=== PATIENT | male | born 1975 | race Caucasian/White ===

== ENCOUNTER 2019-01-10 21:30 | Emergency (ER) | payer OTHER, SELFPAY ==
[2019-01-10 21:33] VITALS: BP 192/94; PULSE 87; RESP 16; TEMP 36.8; O2SAT 96
[2019-01-10] MEDS: Cephalexin 500 MG CAP PO ×2 (22:44→22:55)
[2019-01-10 22:49] VITALS: BP 174/99; PULSE 71; RESP 16; O2SAT 97
--- NOTE | 2019-01-10 22:52 | W.ED.GENAD ---
Discharge Plan Disposition Patient Disposition: HOME Condition: Good Discharge Details Chief Complaint: Laceration Clinical Impression: Complicated laceration of lip Primary Care Provider: Leydi,Local ED Provider: Carolina Cisse Home Meds and New Rx's Prescriptions: New cephalexin [Keflex] 500 mg capsule 500 mg PO QID Qty: 18 RF: 0 Discharge Instructions Instructions: Cephalexin (By mouth), Facial Laceration (ED) Additional Instructions: Encourage hydration. Tylenol and/or ibuprofen as needed for discomfort. Please take Keflex as prescribed. After eating, pleaserinse your mouth with salt water to try to keep inner laceration clean. Monitor wound for signs of infection including redness, warmth, drainage, increased pain, fever/chills. If you develop these or other new/worsening symptoms please seek care urgently once again. External sutures need to be removed in 5 to 7 days, return here to have this done or follow-up with primary care Medical Decision Making Patient is a 43 year old male presenting today after being struck in [facility] face with a hockey puck. Suffered irregular laceration to the left lower lip, does not extend into the meme border. Last tetanus 2 months. Patient feels inner involvement as well. Denies other injury at the time of the incident. No LOC. On exam, he resting comfortably, appears to be in no distress. He has a 1.5 cm angled laceration which goes through to the inner lip. Hole is noted at skylar base of the lip. Patient and I discussed treatment options. We discussed risks/benefits of suture closure as well as expected procedural steps. He voices understanding and wishes to proceed. Please see procedure note. Wound was copiously irrigated with sterile saline and explore through and through with no FB or debris noted. Exterior laceration was closed initially with good approximation of the wound edges. Inner woundw as loosely approximated to help prevent food particle debris but allow for any drainage that may occur. We discussed wound care in depth. Plan to begin on Keflex. He was given strict return precautions. He is unclear where he will be at the time external sutures need to be removed, he will have them removed in the next 5-7 days. All of his questions and concerns were addressed, he is in agreemtn with this plan. Patient noted to be hypertensive. Continues to be hypertensive at 174/99 at the time of discharge. Patient reports he has white coat syndrome and that hits is typical. Monitors BP at home and is not typically elevated. Primary aware. HPI General Mode of arrival: ambulatory. Date/Time Provider Initiated Documentation: 01/10/19 21:33. Limitations to Documentation: no limitations. Information obtained by: patient and RN notes reviewed. History of Present Illness 43 year old M presents to the emergency department with the chief complaint of lip laceration, described as mild, Quality is described as aching, and is localized to the mouth. Patient reports no radiation. Patient started experiencing this minute(s) and it has been constant. No relieving factors improve symptom(s), No exacerbating factors reported . Patient notes no other symptoms.. Patient did receive the following treatments prior to arrival, none Related Data Home Medications Medication Instructions Recorded Confirmed cephalexin [Keflex] 500 mg PO QID #18 cap 01/10/19 Previous Rx's Medication Instructions Recorded cephalexin [Keflex] 500 mg PO QID #18 cap 01/10/19 Allergies Allergy/AdvReac Type Severity Reaction Status Date / Time No Known Allergies Allergy Unverified 11/30/16 11:05 General Stated Complaint: Laceration DALTON: 4 Review of Systems Constitutional Constitutional: Reports as per HPI, Denies chills, Denies fever(s) and Denies headache(s) ENT Ears, Nose, Mouth, and Throat: Denies change in voice, Denies dental pain, Reports facial pain, Denies headache(s), Reports lip swelling, Denies epistaxis, Reports mouth pain, Denies neck pain, Denies nose pain and Denies tongue swelling Musculoskeletal Musculoskeletal: Reports as per HPI and Denies neck pain Integumentary/Breasts Skin/Breast: Reports as per HPI Neurologic Neurologic: Reports as per HPI, Denies headache(s), Denies sensory deficit and Denies paresthesias Allergic/Immunologic Allergic/Immunologic: Reports lip swelling and Denies tongue swelling [facility] Surgical History Repair of inguinal hernia February, Social History Smoking/Tobacco Use Status: Never Alcohol Intake: current Alcohol Intake frequency: a few times a week Drug use: Never Substance use type: does not use and crack/cocaine Do you feel safe at home: Yes Do you feel safe in your relationship?: Yes Exam Const General: cooperative, healthy appearing, comfortable, no acute distress and well developed Nutritional Appearance: average body habitus and well nourished Orientation: alert and awake [facility] Head: normal to inspection, normocephalic and atraumatic Ears: hearing grossly normal bilaterally General nose exam: external nose normal Face images: 1. 1.5cm angled laceration that goes through and through into lower lip. Small amount of active bleeding Mouth: abnormal oral mucosae, lip abnormal, tongue normal, salivary ducts normal, moist mucous membranes, lip abnormal (trauma as drawn below), mouth trauma, no muffled voice, no trismus and No restricted motion Teeth and gingiva: dentition normal, gingiva normal (small abrasion at the buccal base of the #23 tooth, no bleeding, superifica), no caries and no dentures Teeth image: 1. There is a 5mm open hole at the base of the lip and a laceration mirroring the external laceration along the lower lip. Soft tissue swelling of the lip. Throat: posterior oropharynx normal and tonsils normal Resp Effort & Inspection: normal respiratory effort, able to speak in complete sentences and no respiratory distress Cardio Rate: regular rate Rhythm: regular rhythm Skin Trauma: laceration (as drawn above) Neuro General: alert and awake Cognition: normal cognition Speech: speech normal Gait: normal gait Sensory Exam: no sensory deficits noted Psych Appearance: grossly normal and well kempt Mental Status: mental status grossly normal Speech and Movement: speech and movement normal Course Vital Signs Vital signs: Vital Signs Temperature 36.8 C 01/10/19 21:33 Pulse 87 01/10/19 21:33 Respiratory Rate 16 01/10/19 21:33 Blood Pressure 192/94 H 01/10/19 21:33 Pulse Oximetry 96 01/10/19 21:33 Temperature 36.8 C 01/10/19 21:33 Temperature Source Skin 01/10/19 21:33 Pulse 71 01/10/19 22:49 Respiratory Rate 16 01/10/19 22:49 Respiratory Effort 01/10/19 21:37 Blood Pressure 174/99 H 01/10/19 22:49 Blood Pressure Position Sitting 01/10/19 21:33 Pulse Oximetry 97 01/10/19 22:49 Oxygen Delivery Method Room Air 12/04/19 21:33 Oxygen Flow Rate 0 01/10/19 21:33 Pain Level 2 01/10/19 22:49 Procedures Laceration Laceration 1: Site: lip Side (If applicable): left Size (cm): 1.5 Description: irregular Depth: [id number] Local Anesthetic: Lidocaine 1% Amount of anesthesia used (mL): 5 Pre-repair: wound explored and irrigated extensively Skin layer closed with: vicryl Size (cm): 6-0 Number of sutures: 3 Technique: simple, interrupted Subcutaneous layer closed with: vicryl (inner laceration loosely approximated) Size: 5-0 Number of sutures: 2 Technique: simple, interrupted
--- NOTE | 2019-01-10 22:58 | NUR.NOTE ---
Lac repaired by SUZAN Cisse. Wound care discussed. Med a/o. Discharge instructions reviewed with verbal understanding. Aware to have sutures removed in 5-7 days. BP elevated, pt states he gets white coat syndrome. States he has monitor at home per PCP, aware to contact PCP if BP remains high. Ambulated to exit with steady gait.
== END 2019-01-10 23:00 | disposition home or self-care (01) ==
PROVIDERS: Emergency Provider Physician Assistant
DX: S01.511A Laceration without foreign body of lip, initial encounter (principal); W21.220A Struck by ice hockey puck, initial encounter; R03.0 Elevated blood-pressure reading, without diagnosis of hypertension
CPT/HCPCS: 12011